=== PATIENT | male | born 1995 | race African-American/Black ===

== ENCOUNTER 2021-07-10 16:07 | Emergency (ER) | payer BC, OTHER ==
[2021-07-10 16:29] VITALS: BP 125/71; PULSE 101; TEMP 99.7; BMI 26.1
== END 2021-07-10 17:35 | disposition home or self-care (01) ==
LOC: JER 16:07 → JERFT 16:07
DX: J06.9 Acute upper respiratory infection, unspecified (principal)
CPT/HCPCS: 36415; 86308; 86769; 87804; 87880; 99283-25

== ENCOUNTER 2021-10-20 17:11 | Emergency (ER) | payer BC, OTHER ==
[2021-10-20 17:34] VITALS: BP 119/80; PULSE 88; TEMP 98; BMI 25.1
[2021-10-20] MEDS ORDERED: SODIUM CHLORIDE 0.9% 500 ML INFUS.BAG IV ONE ×2 (18:22→20:12)
[2021-10-20] MEDS ORDERED: ONDANSETRON 4 MG/2 ML VIAL IVPUSH ONE (18:22)
[2021-10-20] MEDS ORDERED: ONDANSETRON 4 MG/2 ML VIAL ONE (18:32)
[2021-10-20 19:43] LABS: BASO % 0.3 % (0-2.0); HEMATOCRIT 45.1 % (35.4-49); HEMOGLOBIN 15.2 GM/dL (11.7-16.9); LYMPH % 17.5 % (8-40); MCH 32.8 pg (25.7-33.7); MCHC 33.6 g/dl (32.0-35.9); MEAN CELL VOLUME 97.6 fl (80-96); MEAN PLT VOLUME 9.2 fl (7.5-11.1); MONO % 19.2 % (3.8-10.2); PLATELET COUNT 271 10^3/uL (134-434); RBC 4.62 M/mm3 (4.00-5.60); WHITE BLOOD COUNT 10.6 K/mm3 (4.0-10.0)
[2021-10-20 19:58] LABS: EPI CELLS 7 /uL (0-25.1); HYALINE CASTS 3 /uL (0-3.1); PH,URINE 5.5 (5.0-8.0); URINE APPEARANCE CLEAR; URINE BACTERIA 133 /uL (0-1359); URINE BILIRUBIN 1+ (NEGATIVE); URINE COLOR DK YELLOW; URINE GLUCOSE (UA) NEGATIVE (NEGATIVE); URINE KETONE 1+ (NEGATIVE); URINE LEUK ESTERASE NEGATIVE (NEGATIVE); URINE NITRITE NEGATIVE (NEGATIVE); URINE PROTEIN 2+ (NEGATIVE); URINE RBC 10 /uL (0-23.9); URINE WBC 9 /uL (0-25.8)
[2021-10-20 20:02] LABS: CALCIUM 9.3 mg/dL (8.5-10.1)
[2021-10-20 20:03] LABS: ALBUMIN 3.8 g/dl (3.4-5.0); BLOOD UREA NITROGEN 22.7 mg/dL (7-18)
[2021-10-20 20:06] LABS: CREATININE 1.3 mg/dL (0.55-1.3)
[2021-10-20 20:07] LABS: BILIRUBIN,TOTAL 1.8 mg/dL (0.2-1)
[2021-10-20 20:08] LABS: TOT PROT 8.7 g/dl (6.4-8.2)
== END 2021-10-20 22:27 | disposition home or self-care (01) ==
LOC: JER 17:11
PROC: 3E033GC Introduction of Other Therapeutic Substance into Peripheral Vein, Percutaneous Approach (ICD-10-PCS; principal; 2021-10-20)
DX: R11.2 Nausea with vomiting, unspecified (principal)
CPT/HCPCS: 36415; 80053; 81003; 85025; 86308; 87086; 87651; 87804; 99284-25; C9803; U0003; U0005